=== PATIENT | female | born 1960 | race Caucasian/White ===

== ENCOUNTER 2024-07-03 08:41 | Outpatient (AMB) | payer MEDICAID, SELFPAY ==
--- NOTE | 2024-07-03 08:56 | ORTHONT_ITS ---
Vital signs 07/03/24 08:57 Height 1.73 m Height Method Stated Weight 68.152 kg Weight Measurement Method Standing Scale BMI 22.8 BP 122/89 H Blood Pressure Source Automatic Cuff Blood Pressure Location Right Upper Arm Position Sitting Respiration 17 Pulse 81 Pulse Source Monitor Temp 98.1 F Temp Source Temporal Artery Scan Pulse Oximetry (%) 99 Oxygen Delivery Method Room Air Med/Allergies Allergies & Medications Allergies Penicillins Allergy (Verified 07/03/24 08:58) Hives Medication Reconciliation ibandronate 150 mg tablet 150 mg PO QMONTH 07/03/24 [History Confirmed 07/03/24] meloxicam 7.5 mg tablet 7.5 mg PO QDAY #45 tabs 07/03/24 [Rx] Exam Exam Patient is in no acute distress and is cooperative with the examination today. Breathing is nonlabored. In no respiratory distress. Patient has no paraspinal tenderness. Spinal deformity cannot be appreciated. The gait of the patient is nonantalgic Bilateral extremities were evaluated and demonstrates sensation intact to light touch. Palpable pedal pulses are present. No significant edema is present. Bilateral knees were examined and the patient has full strength and range of motion.. The right hip was examined. Patient was able to flex to 90 degrees, adduct to 30 degrees, abduct to 40 degrees, internally rotate to 20 degrees, and externally rotate to 20 degrees. Patient has a negative logroll. Stinchfield is negative. The patient is nontender diffusely to touch. The left hip was examined. Patient was able to flex to 90 degrees, adduct to 30 degrees, abduct to 40 degrees, internally rotate to 10 degrees, and externally rotate to 20 degrees. PPatient has a positive logroll X-rays demonstrate significant Left hip arthritis with obliteration of superior joint space. There is a cam lesion as well. Assessment and Plan Problem List (1) Arthritis of left hip: Status: Acute Plan: Patient is a pleasant 64-year-old female with left hip pain and left hip arthritis of significant severity. We discussed different treatment options. She would like to continue anti-inflammatories for now as she has had good relief with meloxicam recently. She would like to try an injection if gets worse and she is not ready for total hip replacement at this time which is reasonable. We Will continue with conservative management for now Office Procedures GNS Level of Care Nursing/Assessment Patient Status: Initial/New Patient Nursing Assessment/Reassesment: Medication Reconciliation and Update PMH in EMR Coordination of Care: Complex Care and Chronic Disease 1-5, Consent,records obtained, informed consent, Education Simp Pt/Fam, Lab and Imaging orders and Results/Orders obtained New Patient Charge New Patient Point Assignment: [phone] New Patient Point Charge: [employer] Level 3 (7106-9705) MA Intake Visit Data Collection New Patient or Established: New Patient (never been to [facility]) Reason for Visit:: LEFT HIP PAIN Seen by Clinical Staff ONLY (RN/MA): No Senior Sales Operations Analyst Required: No PCP or OBGYN visit in last 3 months: Yes Hx Now: No Do You Feel Safe at Home: Yes Authorities Contacted: N/A Questionairres Past Medical History Past Medical History Have you ever been diagnosed with any of the following: Respiratory Problems Smoking: No Smoking Cessation Counseling: No Smoking Exposure: No Tobacco Use: No Subjective Visit Visit for: new patient and hip (LEFT HIP) Immunization / Flu Flu Vaccine in the Last 12 Months: Yes Flu Vaccine Exclusion Criteria: Already Received History of Present Illness Chief complaint: Left hip pain Gloria is a pleasant 64-year-old female with left greater than right hip pain. 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 She has had multiple family members with hips replaced recently. She reports significant left groin pain for the last 2 years. It has worsened recently Personal History Red flag PMH: none Pain Pain level (0-10): 2 Pain duration: 3 YEARS Pain location: groin Pain quality: sharp and dull Pain timing: night and increases with activity Associated signs & symptoms: none Ambulatory data Ambulatory device: none Walking distance (minutes): 5 Treatments Number of previous injections: 0 Number of Physical Therapy sessions: 20 Improvement with PT: No Improvement with NSAIDS: n/a Review of Systems Review of Systems: All systems negative unless otherwise noted in HPI.
[2024-07-03 08:57] VITALS: BP 122/89; PULSE 81; RESP 17; TEMP 36.7; O2SAT 99; BMI 22.8
== END 2024-07-03 09:15 | disposition home or self-care (01) ==
LOC: HODSRG 08:41
PROVIDERS: PCP Family Medicine; Referring Provider Family Medicine; Supervising Provider Orthopaedic Surgery Adult Reconstructive Orthopaedic Surgery; Visit Provider Orthopaedic Surgery Adult Reconstructive Orthopaedic Surgery
DX: M16.12 Unilateral primary osteoarthritis, left hip (principal); M25.552 Pain in left hip; M25.551 Pain in right hip
CPT/HCPCS: 99203; G0463

== ENCOUNTER 2024-08-07 14:06 | Outpatient (AMB) | payer MEDICAID, SELFPAY ==
[2024-08-07 14:27] VITALS: BP 126/86; PULSE 191; RESP 18; TEMP 36.8; O2SAT 97; BMI 22.8
--- NOTE | 2024-08-07 14:27 | PD.ORTHCLVIS ---
Vital signs 08/07/24 14:27 Height 1.73 m Height Method Stated Weight 68.266 kg Weight Measurement Method Standing Scale BMI 22.8 BP 126/86 H Blood Pressure Source Automatic Cuff Blood Pressure Location Left Upper Arm Position Sitting Respiration 18 Pulse 191 H Pulse Source Monitor Temp 98.3 F Temp Source Temporal Artery Scan Pulse Oximetry (%) 97 Oxygen Delivery Method Room Air Med/Allergies Allergies & Medications Allergies Penicillins Allergy (Verified 08/07/24 14:28) Hives Medication Reconciliation ibandronate 150 mg tablet 150 mg PO QMONTH 07/03/24 [History Confirmed 08/07/24] meloxicam 7.5 mg tablet 7.5 mg PO QDAY #45 tabs 07/03/24 [Rx Confirmed 08/07/24] Exam Exam Patient is in no acute distress and is cooperative with the examination today. Breathing is nonlabored. In no respiratory distress. Patient has no paraspinal tenderness. Spinal deformity cannot be appreciated. The gait of the patient is nonantalgic Bilateral extremities were evaluated and demonstrates sensation intact to light touch. Palpable pedal pulses are present. No significant edema is present. Bilateral knees were examined and the patient has full strength and range of motion.. The right hip was examined. Patient was able to flex to 90 degrees, adduct to 30 degrees, abduct to 40 degrees, internally rotate to 20 degrees, and externally rotate to 20 degrees. Patient has a negative logroll. Stinchfield is negative. The patient is nontender diffusely to touch. The left hip was examined. Patient was able to flex to 90 degrees, adduct to 30 degrees, abduct to 40 degrees, internally rotate to 10 degrees, and externally rotate to 20 degrees. PPatient has a positive logroll X-rays demonstrate significant Left hip arthritis with obliteration of superior joint space. There is a cam lesion as well. Assessment and Plan Problem List (1) Arthritis of left hip: Status: Acute Plan: Patient is a pleasant 64-year-old female with left hip pain and left hip arthritis of significant severity. We discussed different treatment options. The pain has affected her quality of life and happiness. We will do this through an anterior approach. The nature and purpose of the total hip replacement, alternative method(s) of treatment, the material risks involved, and the possibility of complications were fully explained to the patient. The patient does NOT have any of the following contraindications to SHAN: - Active infection of the hip joint, OR - Active systemic bacteremia, OR - Active skin infection or open wound at surgical site, OR - Neuropathic arthritis, OR - Severe, rapidly progressive neurological disease, OR - Severe medical condition that makes risks of the surgery outweigh the potential benefit The patient was told the most common risks and complications associated with a total hip replacement include, but are not limited to: blood clots in the leg, fatal pulmonary embolism, dislocation of the prosthesis, intraoperative and postoperative fractures of the femur or acetabulum, infection, failure of the prosthesis or grafting materials, complications from anesthesia, reactions to blood transfusions, postoperative leg length inequality, instability of the hip replacement, nerve damage or injury, vascular injury, delayed wound healing, infection, other injury or even . In addition, there are risks associated with anesthesia given during this operation. Also, the patient was told that after undergoing a total hip replacement there may still be persistent pain or disability. The patient was informed that the success of this operation in part depends upon the mechanical devices which are going to be implanted and that these devices can fail or malfunction, and may need to be repaired or replaced and there are no guarantees as to the longevity of this device or its parts and that it or its parts could fail prematurely. The patient was also notified that during the course of surgery, there may be a need to use bone graft from donors, and that any bone graft used will be carefully screened for communicable diseases, including AIDS, hepatitis, Ted-Creutzfeldt, or other diseases, but despite the screening procedures, there is a small chance that they could contract one of these diseases. Finally, the patient was asked to follow completely and fully with all advice and recommended treatments, and that recovery and ultimate outcome are affected by their compliance with recommended treatment. We discussed the risks, benefits and treatment alternatives, and the patient is interested in proceeding with surgery. We will try to set this up as expeditiously as possible. Office Procedures GNS Level of Care Nursing/Assessment Patient Status: Established Patient Nursing Assessment/Reassesment: Medication Reconciliation, Update PMH in EMR and Vital Signs Coordination of Care: Complex Care and Chronic Disease 1-5, Education Complex Pt/Fam, Consent,records obtained, informed consent, Results/Orders obtained and Staff clarify orders Established Patient Charge Established Patient Point Assignment: 95 Established Patient Point Charge: Level 3 (80-115) MA Intake Visit Data Collection New Patient or Established: Established Patient (seen at [facility] within 3 years) Reason for Visit:: BILATERAL HIP PAIN Seen by Clinical Staff ONLY (RN/MA): No PCP or OBGYN visit in last 3 months: Yes Hx Now: No Do You Feel Safe at Home: Yes Authorities Contacted: N/A Questionairres Past Medical History Past Medical History Have you ever been diagnosed with any of the following: Respiratory Problems Smoking: No Smoking Cessation Counseling: No Smoking Exposure: No Tobacco Use: No Subjective Visit Visit for: follow up visit and hip Immunization / Flu Flu Vaccine in the Last 12 Months: No Flu Vaccine Exclusion Criteria: No Exclusion Criteria History of Present Illness Chief complaint: Left hip pain Gloria is a pleasant 64-year-old female with left greater than right hip pain. 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 She has had multiple family members with hips replaced recently. She reports significant left groin pain for the last 2 years. It has worsened recently. We have tried NSAIDs as well as formal physical therapy for several months each. The pain is now affecting his quality of life and happiness Personal History Red flag PMH: none Pain Pain level (0-10): 10 Pain duration: ALL DAY Pain location: groin, outside (lateral) and anterior Pain quality: dull and aching Pain timing: increases with activity Associated signs & symptoms: none Ambulatory data Ambulatory device: none Walking distance (minutes): 5 Treatments Number of previous injections: 0 Improvement with previous injections: No Number of Physical Therapy sessions: 20 Improvement with PT: No Improvement with NSAIDS: no Review of Systems Review of Systems: All systems negative unless otherwise noted in HPI.
--- NOTE | 2024-08-07 14:37 | XR_ITS ---
Examination: Bilateral hips, AP pelvis, 5 views Technique: AP, lateral views both hips, AP pelvis, 5 views Exam date and time: August 07, 2024 at 1448 hours INDICATIONS: Bilateral hip pain 2 months. FINDINGS: Moderate right hip osteoarthritis. Advanced left hip osteoarthritis with severe narrowing of the left hip joint and subarticular sclerosis No hip or pelvic fracture IMPRESSION: Moderate right hip osteoarthritis Severe left hip osteoarthritis
== END 2024-08-07 14:50 | disposition home or self-care (01) ==
LOC: HODSRG 14:06
PROVIDERS: PCP Family Medicine; Referring Provider Family Medicine; Supervising Provider Orthopaedic Surgery Adult Reconstructive Orthopaedic Surgery; Visit Provider Orthopaedic Surgery Adult Reconstructive Orthopaedic Surgery
DX: M16.12 Unilateral primary osteoarthritis, left hip (principal); M25.552 Pain in left hip
CPT/HCPCS: 73522; 99213; G0463

== ENCOUNTER 2024-08-26 09:24 | Outpatient (AMB) | payer MEDICAID, SELFPAY ==
--- NOTE | 2024-08-26 09:39 | PD.ORTHCLVIS ---
Vital signs 08/26/24 09:49 Height 1.73 m Height Method Stated Weight 67.387 kg Weight Measurement Method Standing Scale BMI 22.5 BP 149/78 H Blood Pressure Source Automatic Cuff Blood Pressure Location Right Upper Arm Position Standing Respiration 18 Pulse 82 Pulse Source Monitor Temp 97.4 F Temp Source Temporal Artery Scan Pulse Oximetry (%) 98 Oxygen Delivery Method Room Air Med/Allergies Allergies & Medications Allergies Penicillins Allergy (Verified 08/26/24 09:50) Hives Medication Reconciliation ibandronate 150 mg tablet 150 mg PO QMONTH 07/03/24 [History Confirmed 08/26/24] meloxicam 7.5 mg tablet 7.5 mg PO QDAY #45 tabs 08/12/24 [Rx Confirmed 08/26/24] Exam Exam Patient is in no acute distress and is cooperative with the examination today. Breathing is nonlabored. In no respiratory distress. Patient has no paraspinal tenderness. Spinal deformity cannot be appreciated. The gait of the patient is nonantalgic Bilateral extremities were evaluated and demonstrates sensation intact to light touch. Palpable pedal pulses are present. No significant edema is present. Bilateral knees were examined and the patient has full strength and range of motion.. The right hip was examined. Patient was able to flex to 90 degrees, adduct to 30 degrees, abduct to 40 degrees, internally rotate to 20 degrees, and externally rotate to 20 degrees. Patient has a negative logroll. Stinchfield is negative. The patient is nontender diffusely to touch. The left hip was examined. Patient was able to flex to 90 degrees, adduct to 30 degrees, abduct to 40 degrees, internally rotate to 10 degrees, and externally rotate to 20 degrees. PPatient has a positive logroll X-rays demonstrate significant Left hip arthritis with obliteration of superior joint space. There is a cam lesion as well. Assessment and Plan Problem List (1) Arthritis of left hip: Status: Acute Plan: Patient is a pleasant 64-year-old female with left hip pain and left hip arthritis of significant severity. We discussed different treatment options. The pain has affected her quality of life and happiness. We will do this through an anterior approach. The nature and purpose of the total hip replacement, alternative method(s) of treatment, the material risks involved, and the possibility of complications were fully explained to the patient. The patient does NOT have any of the following contraindications to SHAN: - Active infection of the hip joint, OR - Active systemic bacteremia, OR - Active skin infection or open wound at surgical site, OR - Neuropathic arthritis, OR - Severe, rapidly progressive neurological disease, OR - Severe medical condition that makes risks of the surgery outweigh the potential benefit The patient was told the most common risks and complications associated with a total hip replacement include, but are not limited to: blood clots in the leg, fatal pulmonary embolism, dislocation of the prosthesis, intraoperative and postoperative fractures of the femur or acetabulum, infection, failure of the prosthesis or grafting materials, complications from anesthesia, reactions to blood transfusions, postoperative leg length inequality, instability of the hip replacement, nerve damage or injury, vascular injury, delayed wound healing, infection, other injury or even . In addition, there are risks associated with anesthesia given during this operation. Also, the patient was told that after undergoing a total hip replacement there may still be persistent pain or disability. The patient was informed that the success of this operation in part depends upon the mechanical devices which are going to be implanted and that these devices can fail or malfunction, and may need to be repaired or replaced and there are no guarantees as to the longevity of this device or its parts and that it or its parts could fail prematurely. The patient was also notified that during the course of surgery, there may be a need to use bone graft from donors, and that any bone graft used will be carefully screened for communicable diseases, including AIDS, hepatitis, Ted-Creutzfeldt, or other diseases, but despite the screening procedures, there is a small chance that they could contract one of these diseases. Finally, the patient was asked to follow completely and fully with all advice and recommended treatments, and that recovery and ultimate outcome are affected by their compliance with recommended treatment. We discussed the risks, benefits and treatment alternatives, and the patient is interested in proceeding with surgery. We will try to set this up as expeditiously as possible. Office Procedures GNS Level of Care Nursing/Assessment Patient Status: Established Patient Nursing Assessment/Reassesment: Medication Reconciliation, Update PMH in EMR and Vital Signs Coordination of Care: Complex Care/Chronic Disease 5 or more, Education Complex Pt/Fam, Consent,records obtained, informed consent, Results/Orders obtained and Staff clarify orders Established Patient Charge Established Patient Point Assignment: 105 Established Patient Point Charge: Level 3 (80-115) SABRA Intake Visit Data Collection New Patient or Established: Established Patient (seen at [facility] within 3 years) Reason for Visit:: PRE- OP LEFT SHAN Seen by Clinical Staff ONLY (RN/SABRA): No Verbal consent obtained for Telemed visit?: No Mobile Application Tester Required: No PCP or OBGYN visit in last 3 months: Yes Hx Now: No Do You Feel Safe at Home: Yes Authorities Contacted: N/A Questionairres Past Medical History Past Medical History Have you ever been diagnosed with any of the following: Respiratory Problems Smoking: No Smoking Cessation Counseling: No Smoking Exposure: No Tobacco Use: No Subjective Visit Visit for: follow up visit, post op #1 and hip Immunization / Flu Flu Vaccine in the Last 12 Months: No Flu Vaccine Exclusion Criteria: Already Received History of Present Illness Chief complaint: PRE-OP LEFT SHAN Gloria is a pleasant 64-year-old female with left greater than right hip pain. 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 She has had multiple family members with hips replaced recently. She reports significant left groin pain for the last 2 years. It has worsened recently. We have tried NSAIDs as well as formal physical therapy for several months each. The pain is now affecting his quality of life and happiness Personal History Occupation: RETIRED Red flag PMH: none Pain Pain level (0-10): 6 Pain duration: COMES AND GOES Pain location: groin, outside (lateral) and anterior Pain quality: sharp and dull Pain timing: increases with activity Associated signs & symptoms: none Ambulatory data Ambulatory device: none Walking distance (minutes): 5 Treatments Number of previous injections: 0 Improvement with previous injections: No Number of Physical Therapy sessions: 20 Improvement with PT: No Improvement with NSAIDS: no Review of Systems Review of Systems: All systems negative unless otherwise noted in HPI.
[2024-08-26 09:49] VITALS: BP 149/78; PULSE 82; RESP 18; TEMP 36.3; O2SAT 98; BMI 22.5
== END 2024-08-26 10:14 | disposition home or self-care (01) ==
LOC: HODSRG 09:24
PROVIDERS: PCP Family Medicine; Referring Provider Family Medicine; Supervising Provider Orthopaedic Surgery Adult Reconstructive Orthopaedic Surgery; Visit Provider Orthopaedic Surgery Adult Reconstructive Orthopaedic Surgery
DX: M16.12 Unilateral primary osteoarthritis, left hip (principal); M25.552 Pain in left hip; R10.30 Lower abdominal pain, unspecified
CPT/HCPCS: 99213; G0463

== ENCOUNTER → 2024-09-01 | Outpatient (CLI) | payer MEDICAID, SELFPAY ==
--- NOTE | 2024-09-01 12:30 | XR_ITS ---
Examination: CT bilateral lower extremities, without contrast. 2-D sagittal reconstructions. 2-D coronal reconstructions. 3-D reconstructions. Date and time of exam:September 01, 2024 1234 hours INDICATIONS: Diagnosis unilateral left hip osteoarthritis left hip pain for years CTDI: vol (mGy):12.5 DLP: (mGycm):707 Technique: Multiple 1.25 mm axial sections of the bilateral lower extremities without intravenous contrast have been obtained. 2-D sagittal and coronal reconstructions have been obtained. 3-D reconstructions have been obtained. Low dose protocols were performed. One or more of the following dose reduction techniques were used; automated exposure control, adjustment of the mA and/or KV according to patient size, use of iterative reconstruction technique. Findings: Moderate osteopenia Advanced left hip osteoarthritis, severe joint space narrowing Moderate right hip joint space narrowing Bilateral mild to moderate narrowing medial patellofemoral joints No new fractures No patellar dislocation IMPRESSION: Severe left hip osteoarthritis
== END | disposition home or self-care (01) ==
PROVIDERS: PCP Student in an Organized Health Care Education/Training Program; Referring Provider Orthopaedic Surgery Adult Reconstructive Orthopaedic Surgery; Visit Provider Orthopaedic Surgery Adult Reconstructive Orthopaedic Surgery
DX: M16.12 Unilateral primary osteoarthritis, left hip (principal)
CPT/HCPCS: 72192; 73700

== ENCOUNTER 2024-09-10 05:40 | Day surgery (SDC) | payer MEDICAID, SELFPAY ==
--- NOTE | 2024-09-08 07:00 | EKG_ITS ---
[facility] Test Date: 2024-09-08 Pat Name: MASON CRISTINA Department: Room: - Gender: Female Housekeeper Cleaning Cooking: MAX : 1960 Requested By: Arturo Edgar Order Number: [id number] Reading MD: Arturo Edgar Measurements Intervals [place] Rate: 71 P: 78 IN: 192 QRS: -72 QRSD: 73 T: 70 QT: 338 QTc: 369 Interpretive Statements SINUS RHYTHM POSSIBLE LEFT ATRIAL ENLARGEMENT [-0.1mV P WAVE IN V1/V2] MARKED LEFT AXIS DEVIATION [QRS AXIS < -30] POSSIBLE RIGHT VENTRICULAR CONDUCTION DELAY [RSR (QR) IN V1/V2] ANTEROSEPTAL MYOCARDIAL INFARCTION , OF INDETERMINATE AGE [40+ ms Q WAVE IN V1-V4] No previous ECG available for comparison /[id number]/S0/[id number].pdf
[2024-09-08 09:19] VITALS: BMI 22.9
[2024-09-08 10:35] LABS: Basophils # (Auto) 0.1 Thou/mm3 (0.0-0.2); Basophils % (Auto) 1 % (0-2.5); Eosinophils # (Auto) 0.0 Thou/mm3 (0.0-0.5); Eosinophils % (Auto) 0 % (0-10); Hematocrit 44.3 % (36.0-46.0); Hemoglobin 15.1 g/dL (12.0-16.0); Immature Granulocytes Auto 0.04 Thou/mm3 (0.00-0.00); Lymphocytes # (Auto) 1.1 Thou/mm3 (1.0-4.8); Lymphocytes % (Auto) 13 % (10-50); Mean Corpuscular HGB Conc 34.1 g/dl (31.0-37.0); Mean Corpuscular Hemoglobin 32.4 pg (25.0-35.0); Mean Corpuscular Volume 95 fL (80-100); Monocytes # (Auto) 0.6 Thou/mm3 (0.0-0.8); Monocytes % (Auto) 8 % (0-12); Neutrophils # (Auto) 6.3 Thou/mm3 (1.8-7.7); Neutrophils % (Auto) 78 % (37-80); Nucleated Red Blood Cell # 0.00 Thou/mm3 (0.00-0.00); Nucleated Red Blood Cell % 0 /100 WBC (0); Platelet Count 242 Thou/mm3 (140-440); RDW Standard Deviation 44.5 fL (36.4-46.3); Red Blood Count 4.66 Miln/mm3 (4.00-5.20); White Blood Count 8.1 Thou/mm3 (3.6-11.0)
[2024-09-08 10:44] LABS: Alanine Aminotransferase 51 U/L (10-49); Albumin, Serum 4.9 gm/dL (3.4-4.8); Albumin/Globulin Ratio 1.8 (1.2-2.2); Alkaline Phosphatase 63 U/L (46-116); Anion Gap 9 (7-16); Aspartate Amino Transferase 45 U/L (0-34); BUN/Creatinine Ratio 13 Ratio (12-20); Bilirubin,Total 0.9 mg/dL (0.3-1.2); Blood Urea Nitrogen 10 mg/dL (9-23); Calcium 10.0 mg/dL (8.3-10.6); Calcium (Corrected) 10.0 mg/dL (8.5-10.1); Carbon Dioxide 28.0 mMol/L (20.0-31.0); Chloride 100 mMol/L (98-107); Creatinine (Component) 0.8 mg/dL (0.6-1.3); Estimated Creatinine Clearance 70.0 mL/min (>60); Globulin 2.8 gm/dL (2.3-3.5); Glucose 126 mg/dL (74-106); Osmolality,Calculated 274 (275-295); Potassium 5.0 mMol/L (3.4-5.1); Sodium 137 mMol/L (136-145); Total Protein 7.7 gm/dL (5.7-8.2); eGFR > 60 See Note
[2024-09-08 10:45] LABS: INR 0.9 (0.9-1.3); Partial Thromboplastin Time 28.2 Seconds (22.0-36.0); Prothrombin Time 10.3 Seconds (9.0-12.2)
[2024-09-10] VITALS (12 sets, daily range): BP systolic 90–135; BP diastolic 65–84; PULSE 70–86; RESP 14–20; TEMP 36.2–36.6; O2SAT 94–100; BMI 23.0; BMI 13.0
[2024-09-10] MEDS: ACETAMINOPHEN 325 MG TABLET 650 MG PO (06:36)
[2024-09-10] MEDS: RINGERS LACTATED 1000 ML 1,000 ML 20 ML IV (06:37)
[2024-09-10] MEDS: MELOXICAM 7.5 MG TABLET PO (06:37)
[2024-09-10] MEDS: PREGABALIN 75 MG CAPSULE PO (06:37)
--- NOTE | 2024-09-10 07:49 | XR_ITS ---
Examination: Left hip 3 views Fluoroscopy Date and time: September 10, 2024 0918 hours INDICATIONS: Total left hip arthroplasty today. FINDINGS: Total left hip arthroplasty. Satisfactory alignment Fluoroscopy 12.3 seconds radiation dose 0.954 milligray IMPRESSION: Total left hip arthroplasty with satisfactory alignment
--- NOTE | 2024-09-10 10:14 | SUR.PHASEI ---
pt received from OR in recovery bay 1. pt asleep but responds to voice, breathing unlabored on oxymask 5l. v/s stable. pt dressing to bilateral hips cdi. report received from Fabio VILLANUEVA and Rd SERNA.
--- NOTE | 2024-09-10 10:16 | ESOP_ITS ---
Date of Procedure 09/10/24 Pre Op Diagnosis left hip osteoarthritis Post Op Diagnosis left hip osteoarthritis Procedure left total hip replacement john Findings full thickness cartilage loss and osteophytes Procedure Description Indications: The patient is a 64 y.o. year-old male with a long standing history of left hip pain. After considering the patient's condition and the impact of their hip on the patient's quality of life and activities of daily living, total hip replacement was offered as a reasonable option. Prior to the surgery I discussed the nature of the total hip replacement surgery including alternatives to surgery and the purpose of, and indications for proceeding with surgery. I discussed that this is an elective operation and that the patient should carefully weigh their options before proceeding with surgery. I discussed that this surgery is a shared decision between the patient and the surgeon. Risks and benefits and alternatives of the procedure have been explained to the patient and their family. Anesthesia complications and risks include but are not limited to stroke, heart attack, and . The surgical risks include but are not limited to infection, instability/dislocation, bleeding, nerve and blood vessel injury, deep vein thrombosis, pulmonary embolus, stiffness, pain, scar, need for reoperation, leg length discrepancy, thigh numbness, weakness, and mechanical failure of the implant including loosening, metal complications, metal allergy, wear or breakage. I discussed the expected recovery from surgery and the importance of compliance with all our pre and post-operative recommendations in order to maximize the recovery. The patient understands the risks of loss of life, loss of limb and, loss of function and wishes to proceed. A signed and witnessed consent was obtained and placed in the chart. Procedure in Detail: The patient was identified in the preoperative area. A signed and witness consent was confirmed in the chart. The surgery team confirmed with the patient the operative plan and surgical site. The surgical site was confirmed by the patient and marked by the surgical team. The patient was given the opportunity to ask any further questions and all questions were answered. The patient was brought to the operating room where anesthesia was induced by the anesthesia team without incident. The patient was placed in the supine position on a HANA table with the feet well padded in the boots. All extremities were padded to ensure adequate protection. A timeout was performed prior to the procedure which verified the correct patient, positioning, operation to be performed, operative site, antibiotics, allergies, imaging, and any other concerns. All parties were in agreement. The operative site was cleaned and draped in the usual sterile fashion. A final timeout was performed with all parties in agreement. We first started by making a small incision superior to the ASIS ensuring to be on the table of the pelvis. We ensured that we were 2 fingerbreadths above the ASIS and hip. We placed 3 pins through a small incision and ensured that we w ere in the table. The pins were driven approximately 3 to 4 cm. The arrays were then placed on the contralateral side to face the camera. A anterior approach to the hip was utilized for the operative side. A 11cm skin incision was made just distal and lateral to the ASIS. This was taken down through skin and subcutaneous tissue using a 10 blade. Bleeding was controlled using electrocautery. The fascia was identified and split in line with the its fibers. The plane medial to the TFL was developed. Next the lateral femoral circumflex vessel was cauterized. The capsule over the femoral neck was exposed and a T shaped capsulotomy performed. The two leaflets were tagged. A femoral neck osteotomy was then performed and the head removed using the marker tool to aid in determining the appropriate neck length. The acetabular bone was then mapped.Acetabular retractors were placed and the cupped was reamed using the robot for alignment. We reamed line to line and good bleeding bone was obtained. We then placed a press fit triathlon cup getting proper version and inclination off of c-arm imaging. There was good press fit. The anterior rim of the cup well covered. One placed and confirmed below the rim of the inner cup followed by the liner which was confirmed fully seated circumferentially. Half of the joint injection was placed inferior and anterior to the acetabulum. Peripheral osteophytes were removed. Next the femur was exposed using the table and femoral elevator for assistance. For this case a capsular release was performed leaving the piriformis and rest of short external rotators intact. The canal was broached up until we obtained excellent axial and rotational stability and the hip was reduced. Fluoro was used to apprentice painter brush limb length, offset, and stem size as well as the calibrations from the robot. Stability was assessed by externally rotating the foot to 90 deg and then extending the hip 30 degrees. There was no subluxation of the femoral head in that position. The hip was dislocated. The stem position and depth was adjusted as needed per the fluoro shot. The neck was planed to the level of the broach using the calcar planar and then the stem removed. The canal was irrigated and the calcar inspected. There was no evidence of fracture and the bone bed was in good condition. The real stem was inserted and then impacted to the prior level of the broach with good solid fit. The calcar was again inspected and in good condition. The real head was impacted onto a clean taper and the hip reduced again. C-arm confirmed reduction and no evidence of complication. The wound was irrigated with dilute betadine followed by saline lavage. Hemostasis was obtained and noted through all layers. The remained of the joint cocktail was injected avoiding posterior by the nerve. We ensured that all the pins were removed from the pelvis including any checkpoints. The capsule was repaired with 0-vlock. The fascia closed with #2 Quill. The s ubcutaneous tissues closed with 2-0 vlock followed by 3-0 monocryl, dermabond, and prineo The drapes were then taken down and the patient moved to the [facility]. Leg lengths were confirmed to be appropriate and the patient's lower extremities were warm and well perfused with brisk capillary refill and palpable pulses. The patient was then awoken, transferred to the [facility] and taken to the PACU in stable condition. They tolerated the procedure well. The patient's family/caregiviers were made aware of their condition. Final sponge and needle counts were correct x2. Implants: Tolu cup size 54, 1 screws 40-2.5 ceramic head, insignia size 6 high offset Anesthesia spinal Implants tolu Pathology / specimen None Pathology comment: none Estimated Blood Loss 150 Condition Stable Disposition same day Surgeon Jimbo Maynard MD Surgical Staff Operation Date: 09/10/24 07:30 Case Staff APPLICATION OPERATIONS ENGINEER: Fabio Cartwright RNfolder tier: Luanne Stewart
--- NOTE | 2024-09-10 10:21 | XR_ITS ---
Examination:Left hip AP, lateral, AP pelvis 3 views Technique: Hip AP lateral, AP pelvis, 3 views Exam date and time:September 10, 2024 1024 hours INDICATIONS: Postop hip replacement FINDINGS: Total left hip arthroplasty. Satisfactory alignment. Moderate to advanced right hip osteoarthritis IMPRESSION: Total left hip arthroplasty with satisfactory alignment.
--- NOTE | 2024-09-10 10:55 | SUR.PHASEII ---
pt able to tolerate oral fluids without difficulty swallowing or nausea/vomiting.
--- NOTE | 2024-09-10 11:20 | SUR.PHASEII ---
Received report on pt. s/p surgery from George SERNA. Pt. is resting with eyes closed, responds to verbal commands, VSS, dressing to left hip CDI.
--- NOTE | 2024-09-10 12:46 | SUR.PHASEII ---
pt awake and alert, breathing unlabored on room air. v/s stable. pt dressing to bilateral hips cdi. pt cleared by physical therapist Ambar. pt able to ambulate to bathroom using walker. d/c instructions given with Moshe in room, all questions answered. pt d/c via wheelchair with all belongings.
== END 2024-09-10 12:46 | disposition home or self-care (01) ==
PROVIDERS: Anesthesiology; PCP Family Medicine; Referring Provider Orthopaedic Surgery Adult Reconstructive Orthopaedic Surgery; Visit Provider Orthopaedic Surgery Adult Reconstructive Orthopaedic Surgery
PROC: (CPT 27130; principal; 2024-09-10 07:30)
DX: M16.12 Unilateral primary osteoarthritis, left hip (principal)
CPT/HCPCS: 27130; 20985; 36415; 73502; 76000; 80053; 85025; 85610; 85730; 93005; 97162; A4217; A4649; C1713; C1776; J0690; J1100; J1171; J2250; J2405; J2704; J3010; J3490; J7120; J7999; A4648; A9270; J1920

== ENCOUNTER 2024-09-25 10:57 | Outpatient (AMB) | payer MEDICAID, SELFPAY ==
--- NOTE | 2024-09-25 11:11 | ORTHONT_ITS ---
Vital signs 09/25/24 11:17 Height 1.7 m Height Method Stated Weight 68.152 kg Weight Measurement Method Standing Scale BMI 23.6 BP 130/78 Blood Pressure Source Automatic Cuff Blood Pressure Location Left Upper Arm Position Sitting Respiration 18 Pulse 76 Pulse Source Monitor Temp 97.1 F Temp Source Temporal Artery Scan Pulse Oximetry (%) 97 Oxygen Delivery Method Room Air Med/Allergies Allergies & Medications Allergies Penicillins Allergy (Verified 09/25/24 11:17) Hives Medication Reconciliation ibandronate 150 mg tablet 150 mg PO QMONTH 07/03/24 [History Confirmed 09/25/24] meloxicam 7.5 mg tablet 7.5 mg PO QDAY #45 tabs 08/12/24 [Rx Confirmed 09/25/24] acetaminophen 500 mg tablet (Acetaminophen Extra Strength) 1,000 mg (2 x 500 mg) PO Q6H PRN pain #90 tabs 09/10/24 [Rx Confirmed 09/25/24] aspirin 81 mg tablet,delayed release 81 mg PO BID #60 tabs 09/10/24 [Rx Confirmed 09/25/24] doxycycline hyclate 100 mg tablet 100 mg PO BID #14 tabs 09/10/24 [Rx Confirmed 09/25/24] gabapentin 300 mg capsule 300 mg PO .qhs #30 caps 09/10/24 [Rx Confirmed 09/25/24] oxycodone 5 mg tablet 5 mg PO Q6H PRN pain #28 tabs 09/10/24 [Rx Confirmed 09/25/24] sennosides 8.6 mg-docusate sodium 50 mg tablet (Senna-S) 1 tab-cap PO QDAY #30 tabs 09/10/24 [Rx Confirmed 09/25/24] Exam Exam Patient is in no acute distress and is cooperative with the examination today. Breathing is nonlabored. In no respiratory distress. Patient has no paraspinal tenderness. Spinal deformity cannot be appreciated. The gait of the patient is nonantalgic Bilateral extremities were evaluated and demonstrates sensation intact to light touch. Palpable pedal pulses are present. No significant edema is present. Bilateral knees were examined and the patient has full strength and range of motion.. The right hip was examined. Patient was able to flex to 90 degrees, adduct to 30 degrees, abduct to 40 degrees, internally rotate to 20 degrees, and externally rotate to 20 degrees. Patient has a negative logroll. [place] is negative. The patient is nontender diffusely to touch. Left hip incision is clean dry and intact Assessment and Plan Problem List (1) Arthritis of left hip: Status: Acute Plan: Patient is a pleasant 64-year-old female with left hip pain and left hip arthritis of significant severity. She is status post left total hip replacement and is doing well. Will see the patient back in approximately 4 weeks for routine evaluation. She will start physical therapy Office Procedures GNS Level of Care Nursing/Assessment Patient Status: Established Patient Nursing Assessment/Reassesment: Medication Reconciliation, Update PMH in EMR and Vital Signs Coordination of Care: Complex Care and Chronic Disease 1-5, Education Complex Pt/Fam, Consent,records obtained, informed consent, Results/Orders obtained and Staff clarify orders Established Patient Charge Established Patient Point Assignment: 95 Established Patient Point Charge: Level 3 (80-115) MA Intake Visit Data Collection New Patient or Established: Established Patient (seen at [facility] within 3 years) Reason for Visit:: 2 WEEK POST OP L SHAN Seen by Clinical Staff ONLY (RN/MA): No Verbal consent obtained for Telemed visit?: No Schedule Announcer Required: No PCP or OBGYN visit in last 3 months: Yes Hx Now: No Do You Feel Safe at Home: Yes Authorities Contacted: N/A Questionairres Past Medical History Past Medical History Have you ever been diagnosed with any of the following: Neurological Problems Seizures: No Cardiology Problems Congestive Heart Failure: No Respiratory Problems Chronic Obstructive Pulmonary Disease (COPD): No Smoking: No Smoking Cessation Counseling: No Smoking Exposure: No Tobacco Use: No Genital/Urinary Problems Renal Disease: No Reproductive Problems Previous Pregnancies: No Musculoskeletal Problems Osteoporosis: Yes (Ostopenia) Fractures: Yes (Left wrist) Endocrine Problems Diabetes Mellitus Type 1: No Diabetes Mellitus Type 2: No Other Problems Hospitalization: Yes ([facility]) Shingles: Yes Blood Transfusions: No Blood Transfusion Reaction: No Anesthesia Reactions: No Chicken Pox: Yes Cancer: No Surgical History Total Hip Replacement: Yes (LEFT 08/2024) Subjective Visit Visit for: follow up visit, post op #1 and hip Immunization / Flu Flu Vaccine in the Last 12 Months: No Flu Vaccine Exclusion Criteria: Already Received History of Present Illness Chief complaint: PRE-OP LEFT SHAN Gloria is a pleasant 64-year-old female with left greater than right hip pain. She is doing well status post total hip replacement which was done 2 weeks ago. She is very happy Personal History Occupation: RETIRED Red flag PMH: none Pain Pain level (0-10): 3 Pain duration: ON AND OFF Pain location: outside (lateral) Pain quality: dull Pain timing: increases with activity Associated signs & symptoms: none Ambulatory data Ambulatory device: none Walking distance (minutes): 5 Treatments Number of previous injections: 0 Improvement with previous injections: No Number of Physical Therapy sessions: 20 Improvement with PT: No Improvement with NSAIDS: no Review of Systems Review of Systems: All systems negative unless otherwise noted in HPI.
[2024-09-25 11:17] VITALS: BP 130/78; PULSE 76; RESP 18; TEMP 36.2; O2SAT 97; BMI 23.6
== END 2024-09-25 11:27 | disposition home or self-care (01) ==
LOC: HODSRG 10:57
PROVIDERS: PCP Family Medicine; Referring Provider Family Medicine; Supervising Provider Orthopaedic Surgery Adult Reconstructive Orthopaedic Surgery; Visit Provider Orthopaedic Surgery Adult Reconstructive Orthopaedic Surgery
DX: M16.12 Unilateral primary osteoarthritis, left hip (principal); M25.552 Pain in left hip; Z96.642 Presence of left artificial hip joint
CPT/HCPCS: 99213; G0463

== ENCOUNTER 2024-10-23 11:03 | Outpatient (AMB) | payer MEDICAID, SELFPAY ==
[2024-10-23 11:11] VITALS: BP 116/78; PULSE 78; RESP 18; TEMP 36.2; O2SAT 98; BMI 23.6
--- NOTE | 2024-10-23 11:11 | ORTHONT_ITS ---
Vital signs 10/23/24 11:11 Height 1.7 m Height Method Stated Weight 68.152 kg Weight Measurement Method Standing Scale BMI 23.6 BP 116/78 Blood Pressure Source Automatic Cuff Blood Pressure Location Left Upper Arm Position Sitting Respiration 18 Pulse 78 Pulse Source Monitor Temp 97.2 F Temp Source Temporal Artery Scan Pulse Oximetry (%) 98 Oxygen Delivery Method Room Air Med/Allergies Allergies & Medications Allergies Penicillins Allergy (Verified 10/23/24 11:12) Hives Medication Reconciliation ibandronate 150 mg tablet 150 mg PO QMONTH 07/03/24 [History Confirmed 10/23/24] meloxicam 7.5 mg tablet 7.5 mg PO QDAY #45 tabs 08/12/24 [Rx Confirmed 10/23/24] acetaminophen 500 mg tablet (Acetaminophen Extra Strength) 1,000 mg (2 x 500 mg) PO Q6H PRN pain #90 tabs 09/10/24 [Rx Confirmed 10/23/24] aspirin 81 mg tablet,delayed release 81 mg PO BID #60 tabs 09/10/24 [Rx Confirmed 10/23/24] doxycycline hyclate 100 mg tablet 100 mg PO BID #14 tabs 09/10/24 [Rx Confirmed 10/23/24] gabapentin 300 mg capsule 300 mg PO .qhs #30 caps 09/10/24 [Rx Confirmed 10/23/24] oxycodone 5 mg tablet 5 mg PO Q6H PRN pain #28 tabs 09/10/24 [Rx Confirmed 10/23/24] sennosides 8.6 mg-docusate sodium 50 mg tablet (Senna-S) 1 tab-cap PO QDAY #30 tabs 09/10/24 [Rx Confirmed 10/23/24] Exam Exam Patient is in no acute distress and is cooperative with the examination today. Breathing is nonlabored. In no respiratory distress. Patient has no paraspinal tenderness. Spinal deformity cannot be appreciated. The gait of the patient is nonantalgic Bilateral extremities were evaluated and demonstrates sensation intact to light touch. Palpable pedal pulses are present. No significant edema is present. Bilateral knees were examined and the patient has full strength and range of motion.. The right hip was examined. Patient was able to flex to 90 degrees, adduct to 30 degrees, abduct to 40 degrees, internally rotate to 10 degrees, and externally rotate to 20 degrees. Patient has a positive logroll. [place] is positiive. Left hip incision is clean dry and intact Assessment and Plan Problem List (1) Arthritis of left hip: Status: Acute Plan: Patient is a pleasant 64-year-old female with left hip pain and left hip arthritis of significant severity. She is status post left total hip replacement and is doing well. The right hip pain is affecting her quality life and happiness. We will plan to do this through an anterior approach The nature and purpose of the total hip replacement, alternative method(s) of treatment, the material risks involved, and the possibility of complications were fully explained to the patient. The patient does NOT have any of the following contraindications to SHAN: - Active infection of the hip joint, OR - Active systemic bacteremia, OR - Active skin infection or open wound at surgical site, OR - Neuropathic arthritis, OR - Severe, rapidly progressive neurological disease, OR - Severe medical condition that makes risks of the surgery outweigh the potential benefit The patient was told the most common risks and complications associated with a total hip replacement include, but are not limited to: blood clots in the leg, fatal pulmonary embolism, dislocation of the prosthesis, intraoperative and postoperative fractures of the femur or acetabulum, infection, failure of the prosthesis or grafting materials, complications from anesthesia, reactions to blood transfusions, postoperative leg length inequality, instability of the hip replacement, nerve damage or injury, vascular injury, delayed wound healing, infection, other injury or even . In addition, there are risks associated with anesthesia given during this operation. Also, the patient was told that after undergoing a total hip replacement there may still be persistent pain or disability. The patient was informed that the success of this operation in part depends upon the mechanical devices which are going to be implanted and that these devices can fail or malfunction, and may need to be repaired or replaced and there are no guarantees as to the longevity of this device or its parts and that it or its parts could fail prematurely. The patient was also notified that during the course of surgery, there may be a need to use bone graft from donors, and that any bone graft used will be carefully screened for communicable diseases, including AIDS, hepatitis, Ted-Creutzfeldt, or other diseases, but despite the screening procedures, there is a small chance that they could contract one of these diseases. Finally, the patient was asked to follow completely and fully with all advice and recommended treatments, and that recovery and ultimate outcome are affected by their compliance with recommended treatment. We discussed the risks, benefits and treatment alternatives, and the patient is interested in proceeding with surgery. We will try to set this up as expeditiously as possible. Office Procedures GNS Level of Care Nursing/Assessment Patient Status: Established Patient Nursing Assessment/Reassesment: Medication Reconciliation, Update PMH in EMR and Vital Signs Coordination of Care: Complex Care and Chronic Disease 1-5, Education Complex Pt/Fam, Consent,records obtained, informed consent, Results/Orders obtained and Staff clarify orders Established Patient Charge Established Patient Point Assignment: 95 Established Patient Point Charge: EP Level 3 (80-115) MA Intake Visit Data Collection New Patient or Established: Established Patient (seen at [facility] within 3 years) Reason for Visit:: 4 WEEK SHAN L Seen by Clinical Staff ONLY (RN/MA): No Verbal consent obtained for Telemed visit?: No Provisioning Analyst Required: No PCP or OBGYN visit in last 3 months: Yes Hx Now: No Do You Feel Safe at Home: Yes Authorities Contacted: N/A Questionairres Past Medical History Past Medical History Have you ever been diagnosed with any of the following: Neurological Problems Seizures: No Cardiology Problems Congestive Heart Failure: No Respiratory Problems Chronic Obstructive Pulmonary Disease (COPD): No Smoking: No Smoking Cessation Counseling: No Smoking Exposure: No Tobacco Use: No Genital/Urinary Problems Renal Disease: No Reproductive Problems Previous Pregnancies: No Musculoskeletal Problems Osteoporosis: Yes (Ostopenia) Fractures: Yes (Left wrist) Endocrine Problems Diabetes Mellitus Type 1: No Diabetes Mellitus Type 2: No Other Problems Hospitalization: Yes ([facility]) Shingles: Yes Blood Transfusions: No Blood Transfusion Reaction: No Anesthesia Reactions: No Chicken Pox: Yes Cancer: No Surgical History Total Hip Replacement: Yes (LEFT 08/2024) Subjective Visit Visit for: follow up visit, post op #1 and hip Immunization / Flu Flu Vaccine in the Last 12 Months: No Flu Vaccine Exclusion Criteria: Already Received History of Present Illness Chief complaint: POST OP 4 WEEK LEFT SHAN Gloria is a pleasant 64-year-old female with left greater than right hip pain. She is doing well status post total hip replacement which was done 6 weeks ago. She is very happy with her left hip replacement. SHe has tried NSAIDs and formal physical therapy but is very limited by her right hip pain. She has some difficulty putting on socks and shoes Personal History Occupation: RETIRED Red flag PMH: none Pain Pain level (0-10): 0 Pain duration: ON AND OFF Pain location: outside (lateral) Pain quality: dull Pain timing: increases with activity Associated signs & symptoms: none Ambulatory data Ambulatory device: none Walking distance (minutes): 5 Treatments Number of previous injections: 0 Improvement with previous injections: No Number of Physical Therapy sessions: 20 Improvement with PT: No Improvement with NSAIDS: no Review of Systems Review of Systems: All systems negative unless otherwise noted in HPI.
== END 2024-10-23 11:18 | disposition home or self-care (01) ==
LOC: HODSRG 11:03
PROVIDERS: PCP Family Medicine; Referring Provider Family Medicine; Supervising Provider Orthopaedic Surgery Adult Reconstructive Orthopaedic Surgery; Visit Provider Orthopaedic Surgery Adult Reconstructive Orthopaedic Surgery
DX: M16.12 Unilateral primary osteoarthritis, left hip (principal); M25.551 Pain in right hip; Z96.642 Presence of left artificial hip joint
CPT/HCPCS: 99213; G0463

== ENCOUNTER → 2024-12-01 | Outpatient (CLI) | payer MEDICAID, SELFPAY ==
--- NOTE | 2024-12-01 14:27 | XR_ITS ---
Examination: Right hip AP, lateral, AP pelvis 3 views Technique: Hip AP lateral, AP pelvis, 3 views Exam date and time: December 01, 2024, 1446 hours INDICATIONS: Right hip pain beginning 1 year ago. FINDINGS: Prominent osteopenia Advanced right hip osteoarthritis Left hip total arthroplasty with satisfactory alignment Bones of the pelvis intact IMPRESSION: Advanced right hip osteoarthritis.
== END | disposition home or self-care (01) ==
PROVIDERS: Referring Provider Orthopaedic Surgery Adult Reconstructive Orthopaedic Surgery; Visit Provider Orthopaedic Surgery Adult Reconstructive Orthopaedic Surgery
DX: M16.11 Unilateral primary osteoarthritis, right hip (principal)
CPT/HCPCS: 73502

== ENCOUNTER 2024-12-11 10:23 | Outpatient (AMB) | payer MEDICAID, SELFPAY ==
--- NOTE | 2024-12-11 10:46 | PD.ORTHCLVIS ---
Vital signs 12/11/24 10:47 Height 1.7 m Height Method Stated Weight 68.748 kg Weight Measurement Method Standing Scale BMI 23.8 BP 128/83 Blood Pressure Source Automatic Cuff Blood Pressure Location Left Upper Arm Position Sitting Respiration 19 Pulse 76 Pulse Source Monitor Temp 96.9 F Temp Source Temporal Artery Scan Pulse Oximetry (%) 98 Oxygen Delivery Method Room Air Med/Allergies Allergies & Medications Allergies Penicillins Allergy (Verified 12/11/24 10:48) Hives Medication Reconciliation ibandronate 150 mg tablet 150 mg PO QMONTH 07/03/24 [History Confirmed 12/11/24] meloxicam 7.5 mg tablet 7.5 mg PO QDAY #45 tabs 08/12/24 [Rx Confirmed 12/11/24] acetaminophen 500 mg tablet (Acetaminophen Extra Strength) 1,000 mg (2 x 500 mg) PO Q6H PRN pain #90 tabs 09/10/24 [Rx Confirmed 12/11/24] aspirin 81 mg tablet,delayed release 81 mg PO BID #60 tabs 09/10/24 [Rx Confirmed 12/11/24] doxycycline hyclate 100 mg tablet 100 mg PO BID #14 tabs 09/10/24 [Rx Confirmed 12/11/24] gabapentin 300 mg capsule 300 mg PO .qhs #30 caps 09/10/24 [Rx Confirmed 12/11/24] oxycodone 5 mg tablet 5 mg PO Q6H PRN pain #28 tabs 09/10/24 [Rx Confirmed 12/11/24] sennosides 8.6 mg-docusate sodium 50 mg tablet (Senna-S) 1 tab-cap PO QDAY #30 tabs 09/10/24 [Rx Confirmed 12/11/24] Exam Exam Patient is in no acute distress and is cooperative with the examination today. Breathing is nonlabored. In no respiratory distress. Patient has no paraspinal tenderness. Spinal deformity cannot be appreciated. The gait of the patient is nonantalgic Bilateral extremities were evaluated and demonstrates sensation intact to light touch. Palpable pedal pulses are present. No significant edema is present. Bilateral knees were examined and the patient has full strength and range of motion.. The right hip was examined. Patient was able to flex to 90 degrees, adduct to 30 degrees, abduct to 40 degrees, internally rotate to 10 degrees, and externally rotate to 20 degrees. Patient has a positive logroll. [facility] 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 Joint space narrowing is demonstrates complete obliteration Assessment and Plan Problem List (1) Arthritis of left hip: Status: Acute Plan: Patient is a pleasant 64-year-old female with left hip pain and left hip arthritis of significant severity. She is status post left total hip replacement and is doing well. She has tried NSAIDS and PT. The right hip pain is affecting her quality life and happiness. We will plan to do this through an anterior approach. We will need a CT as well The nature and purpose of the total hip replacement, alternative method(s) of treatment, the material risks involved, and the possibility of complications were fully explained to the patient. The patient does NOT have any of the following contraindications to SHAN: - Active infection of the hip joint, OR - Active systemic bacteremia, OR - Active skin infection or open wound at surgical site, OR - Neuropathic arthritis, OR - Severe, rapidly progressive neurological disease, OR - Severe medical condition that makes risks of the surgery outweigh the potential benefit The patient was told the most common risks and complications associated with a total hip replacement include, but are not limited to: blood clots in the leg, fatal pulmonary embolism, dislocation of the prosthesis, intraoperative and postoperative fractures of the femur or acetabulum, infection, failure of the prosthesis or grafting materials, complications from anesthesia, reactions to blood transfusions, postoperative leg length inequality, instability of the hip replacement, nerve damage or injury, vascular injury, delayed wound healing, infection, other injury or even . In addition, there are risks associated with anesthesia given during this operation. Also, the patient was told that after undergoing a total hip replacement there may still be persistent pain or disability. The patient was informed that the success of this operation in part depends upon the mechanical devices which are going to be implanted and that these devices can fail or malfunction, and may need to be repaired or replaced and there are no guarantees as to the longevity of this device or its parts and that it or its parts could fail prematurely. The patient was also notified that during the course of surgery, there may be a need to use bone graft from donors, and that any bone graft used will be carefully screened for communicable diseases, including AIDS, hepatitis, Ted-Creutzfeldt, or other diseases, but despite the screening procedures, there is a small chance that they could contract one of these diseases. Finally, the patient was asked to follow completely and fully with all advice and recommended treatments, and that recovery and ultimate outcome are affected by their compliance with recommended treatment. We discussed the risks, benefits and treatment alternatives, and the patient is interested in proceeding with surgery. We will try to set this up as expeditiously as possible. Office Procedures GNS Level of Care Nursing/Assessment Patient Status: Established Patient Nursing Assessment/Reassesment: Medication Reconciliation, Update PMH in EMR and Vital Signs Coordination of Care: Complex Care and Chronic Disease 1-5, Education Complex Pt/Fam, Consent,records obtained, informed consent, Results/Orders obtained and Staff clarify orders Special Needs: Language special needs Established Patient Charge Established Patient Point Assignment: 95 Established Patient Point Charge: EP Level 3 (80-115) MA Intake Visit Data Collection New Patient or Established: Established Patient (seen at [facility] within 3 years) Reason for Visit:: PRE OP R SHAN Seen by Clinical Staff ONLY (RN/MA): No Verbal consent obtained for Telemed visit?: No Steam Box Operator Required: No PCP or OBGYN visit in last 3 months: Yes Hx Now: No Do You Feel Safe at Home: Yes Authorities Contacted: N/A Questionairres Past Medical History Past Medical History Have you ever been diagnosed with any of the following: Neurological Problems Seizures: No Cardiology Problems Congestive Heart Failure: No Respiratory Problems Chronic Obstructive Pulmonary Disease (COPD): No Smoking: No Smoking Cessation Counseling: No Smoking Exposure: No Tobacco Use: No Genital/Urinary Problems Renal Disease: No Reproductive Problems Previous Pregnancies: No Musculoskeletal Problems Osteoporosis: Yes (Ostopenia) Fractures: Yes (Left wrist) Endocrine Problems Diabetes Mellitus Type 1: No Diabetes Mellitus Type 2: No Other Problems Hospitalization: Yes ([facility]) Shingles: Yes Blood Transfusions: No Blood Transfusion Reaction: No Anesthesia Reactions: No Chicken Pox: Yes Cancer: No Surgical History Total Hip Replacement: Yes (LEFT 08/2024) Subjective Visit Visit for: follow up visit, post op #1 and hip Immunization / Flu Flu Vaccine in the Last 12 Months: No Flu Vaccine Exclusion Criteria: Already Received History of Present Illness Chief complaint: PRE OP R SHAN Gloria is a pleasant 64-year-old female with left greater than right hip pain. She is doing well status post total hip replacement which was done 6 weeks ago. She is very happy with her left hip replacement. SHe has tried NSAIDs and formal physical therapy but is very limited by her right hip pain. She has some difficulty putting on socks and shoes. She has tried meloxicam and activity modification for her right side as well as pt. Personal History Occupation: RETIRED Red flag PMH: none Pain Pain level (0-10): 0 Pain duration: ON AND OFF Pain location: outside (lateral) Pain quality: dull Pain timing: increases with activity Associated signs & symptoms: none Ambulatory data Ambulatory device: none Walking distance (minutes): 5 Treatments Number of previous injections: 0 Improvement with previous injections: No Number of Physical Therapy sessions: 20 Improvement with PT: No Improvement with NSAIDS: no Review of Systems Review of Systems: All systems negative unless otherwise noted in HPI.
[2024-12-11 10:47] VITALS: BP 128/83; PULSE 76; RESP 19; TEMP 36.1; O2SAT 98; BMI 23.8
== END 2024-12-11 10:54 | disposition home or self-care (01) ==
PROVIDERS: Supervising Provider Orthopaedic Surgery Adult Reconstructive Orthopaedic Surgery; Visit Provider Orthopaedic Surgery Adult Reconstructive Orthopaedic Surgery
DX: Z47.1 Aftercare following joint replacement surgery (principal); Z96.642 Presence of left artificial hip joint; M25.561 Pain in right knee; M25.562 Pain in left knee; M16.11 Unilateral primary osteoarthritis, right hip
CPT/HCPCS: 99213; G0463

== ENCOUNTER 2024-12-25 10:59 | Outpatient (AMB) | payer MEDICAID, SELFPAY ==
--- NOTE | 2024-12-25 11:06 | ORTHONT_ITS ---
Vital signs 12/25/24 11:09 Height 1.7 m Height Method Stated Weight 68.492 kg Weight Measurement Method Standing Scale BMI 23.7 BP 113/79 Blood Pressure Source Automatic Cuff Blood Pressure Location Left Upper Arm Position Sitting Respiration 19 Pulse 83 Pulse Source Monitor Temp 97.6 F Temp Source Temporal Artery Scan Pulse Oximetry (%) 97 Oxygen Delivery Method Room Air Med/Allergies Allergies & Medications Allergies Penicillins Allergy (Verified 12/25/24 11:08) Hives Medication Reconciliation ibandronate 150 mg tablet 150 mg PO QMONTH 07/03/24 [History Confirmed 12/25/24] meloxicam 7.5 mg tablet 7.5 mg PO QDAY #45 tabs 08/12/24 [Rx Confirmed 12/25/24] acetaminophen 500 mg tablet (Acetaminophen Extra Strength) 1,000 mg (2 x 500 mg) PO Q6H PRN pain #90 tabs 09/10/24 [Rx Confirmed 12/25/24] aspirin 81 mg tablet,delayed release 81 mg PO BID #60 tabs 09/10/24 [Rx Confirmed 12/25/24] doxycycline hyclate 100 mg tablet 100 mg PO BID #14 tabs 09/10/24 [Rx Confirmed 12/25/24] gabapentin 300 mg capsule 300 mg PO .qhs #30 caps 09/10/24 [Rx Confirmed 12/25/24] oxycodone 5 mg tablet 5 mg PO Q6H PRN pain #28 tabs 09/10/24 [Rx Confirmed 12/25/24] sennosides 8.6 mg-docusate sodium 50 mg tablet (Senna-S) 1 tab-cap PO QDAY #30 tabs 09/10/24 [Rx Confirmed 12/25/24] Exam Exam Patient is in no acute distress and is cooperative with the examination today. Breathing is nonlabored. In no respiratory distress. Patient has no paraspinal tenderness. Spinal deformity cannot be appreciated. The gait of the patient is nonantalgic Bilateral extremities were evaluated and demonstrates sensation intact to light touch. Palpable pedal pulses are present. No significant edema is present. Bilateral knees were examined and the patient has full strength and range of motion.. The right hip was examined. Patient was able to flex to 90 degrees, adduct to 30 degrees, abduct to 40 degrees, internally rotate to 10 degrees, and externally rotate to 20 degrees. Patient has a positive logroll. [facility] 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 Joint space narrowing is demonstrates complete obliteration Assessment and Plan Problem List (1) Arthritis of left hip: Status: Acute Plan: Patient is a pleasant 64-year-old female with left hip pain and left hip arthritis of significant severity. She is status post left total hip replacement and is doing well. She has tried NSAIDS and PT. The right hip pain is affecting her quality life and happiness. We will plan to do this through an anterior approach. The nature and purpose of the total hip replacement, alternative method(s) of treatment, the material risks involved, and the possibility of complications were fully explained to the patient. The patient does NOT have any of the following contraindications to SHAN: - Active infection of the hip joint, OR - Active systemic bacteremia, OR - Active skin infection or open wound at surgical site, OR - Neuropathic arthritis, OR - Severe, rapidly progressive neurological disease, OR - Severe medical condition that makes risks of the surgery outweigh the potential benefit The patient was told the most common risks and complications associated with a total hip replacement include, but are not limited to: blood clots in the leg, fatal pulmonary embolism, dislocation of the prosthesis, intraoperative and postoperative fractures of the femur or acetabulum, infection, failure of the prosthesis or grafting materials, complications from anesthesia, reactions to blood transfusions, postoperative leg length inequality, instability of the hip replacement, nerve damage or injury, vascular injury, delayed wound healing, infection, other injury or even . In addition, there are risks associated with anesthesia given during this operation. Also, the patient was told that after undergoing a total hip replacement there may still be persistent pain or disability. The patient was informed that the success of this operation in part depends upon the mechanical devices which are going to be implanted and that these devices can fail or malfunction, and may need to be repaired or replaced and there are no guarantees as to the longevity of this device or its parts and that it or its parts could fail prematurely. The patient was also notified that during the course of surgery, there may be a need to use bone graft from donors, and that any bone graft used will be carefully screened for communicable diseases, including AIDS, hepatitis, Ted-Creutzfeldt, or other diseases, but despite the screening procedures, there is a small chance that they could contract one of these diseases. Finally, the patient was asked to follow completely and fully with all advice and recommended treatments, and that recovery and ultimate outcome are affected by their compliance with recommended treatment. We discussed the risks, benefits and treatment alternatives, and the patient is interested in proceeding with surgery. We will try to set this up as expeditiously as possible. Office Procedures GNS Level of Care Nursing/Assessment Patient Status: Established Patient Nursing Assessment/Reassesment: Medication Reconciliation, Update PMH in EMR and Vital Signs Coordination of Care: Complex Care and Chronic Disease 1-5, Education Complex Pt/Fam, Consent,records obtained, informed consent, Results/Orders obtained and Staff clarify orders Established Patient Charge Established Patient Point Assignment: 95 Established Patient Point Charge: EP Level 3 (80-115) MA Intake Visit Data Collection New Patient or Established: Established Patient (seen at [facility] within 3 years) Reason for Visit:: PRE OP R SHAN Seen by Clinical Staff ONLY (RN/MA): No Verbal consent obtained for Telemed visit?: No Data Management Consultant Required: No PCP or OBGYN visit in last 3 months: Yes Hx Now: No Do You Feel Safe at Home: Yes Authorities Contacted: N/A Questionairres Past Medical History Past Medical History Have you ever been diagnosed with any of the following: Neurological Problems Seizures: No Cardiology Problems Congestive Heart Failure: No Respiratory Problems Chronic Obstructive Pulmonary Disease (COPD): No Smoking: No Smoking Cessation Counseling: No Smoking Exposure: No Tobacco Use: No Genital/Urinary Problems Renal Disease: No Reproductive Problems Previous Pregnancies: No Musculoskeletal Problems Osteoporosis: Yes (Ostopenia) Fractures: Yes (Left wrist) Endocrine Problems Diabetes Mellitus Type 1: No Diabetes Mellitus Type 2: No Other Problems Hospitalization: Yes ([facility]) Shingles: Yes Blood Transfusions: No Blood Transfusion Reaction: No Anesthesia Reactions: No Chicken Pox: Yes Cancer: No Surgical History Total Hip Replacement: Yes (LEFT 08/2024) Subjective Visit Visit for: follow up visit and hip (RIGHT) Immunization / Flu Flu Vaccine in the Last 12 Months: No Flu Vaccine Exclusion Criteria: Already Received History of Present Illness Chief complaint: PRE OP R SHAN Gloria is a pleasant 64-year-old female with left greater than right hip pain. She is doing well status post total hip replacement which was done 6 weeks ago. She is very happy with her left hip replacement. SHe has tried NSAIDs and formal physical therapy but is very limited by her right hip pain. She has some difficulty putting on socks and shoes. She has tried meloxicam and activity modification for her right side as well as pt. Personal History Occupation: RETIRED Red flag PMH: none Additional comments: PATIENT HAS HER OWN 2 WHEEL WALKER AWARE TO TAKE IN DAY OF SX Pain Pain level (0-10): 0 Pain duration: ON AND OFF Pain location: outside (lateral) Pain quality: dull Pain timing: increases with activity Associated signs & symptoms: none Ambulatory data Ambulatory device: none Walking distance (minutes): 5 Treatments Number of previous injections: 0 Improvement with previous injections: No Number of Physical Therapy sessions: 20 Improvement with PT: No Improvement with NSAIDS: no Review of Systems Review of Systems: All systems negative unless otherwise noted in HPI.
[2024-12-25 11:09] VITALS: BP 113/79; PULSE 83; RESP 19; TEMP 36.4; O2SAT 97; BMI 23.7
== END 2024-12-25 11:10 | disposition home or self-care (01) ==
LOC: HODSRG 10:59
PROVIDERS: PCP Family Medicine; Referring Provider Family Medicine; Supervising Provider Orthopaedic Surgery Adult Reconstructive Orthopaedic Surgery; Visit Provider Orthopaedic Surgery Adult Reconstructive Orthopaedic Surgery
DX: Z96.642 Presence of left artificial hip joint (principal); M16.11 Unilateral primary osteoarthritis, right hip
CPT/HCPCS: 99213; G0463

== ENCOUNTER → 2024-12-25 | Outpatient (CLI) | payer MEDICAID, SELFPAY ==
--- NOTE | 2024-12-25 12:37 | XR_ITS ---
Examination: CT bilateral lower extremities without intravenous contrast, 2-D sagittal reconstructions. 2-D coronal reconstructions. 3-D reconstructions. Date and time of exam: December 25, 2024, 1324 hours INDICATIONS: Right hip pain 3 years, diagnosis primary unilateral osteoarthritis right hip CTDI: vol (mGy): 19.6 DLP: (mGycm): 839 Technique: Multiple 1.25 mm axial sections of the bilateral lower extremities without intravenous contrast have been obtained. 2-D sagittal and coronal reconstructions have been obtained. 3-D reconstructions have been obtained. Low dose protocols were performed. One or more of the following dose reduction techniques were used; automated exposure control, adjustment of the mA and/or KV according to patient size, use of iterative reconstruction technique. Findings: Advanced narrowing right hip joint No right hip fracture No avascular necrosis Total left hip arthroplasty with satisfactory alignment Mild to moderate bilateral narrowing medial joint spaces of the knee Mild to moderate bilateral narrowing lateral patellofemoral joints No new fractures IMPRESSION: Advanced right hip osteoarthritis
== END | disposition home or self-care (01) ==
LOC: CDIM 12:29
PROVIDERS: PCP Family Medicine; Referring Provider Orthopaedic Surgery Adult Reconstructive Orthopaedic Surgery; Visit Provider Orthopaedic Surgery Adult Reconstructive Orthopaedic Surgery
DX: M16.11 Unilateral primary osteoarthritis, right hip (principal)
CPT/HCPCS: 72192; 73700

== ENCOUNTER 2025-01-28 08:40 | Day surgery (SDC) | payer MEDICAID, SELFPAY ==
[2025-01-27 11:19] VITALS: BMI 22.9
[2025-01-27 12:15] LABS: Basophils # (Auto) 0.0 Thou/mm3 (0.0-0.2); Basophils % (Auto) 1 % (0-2.5); Eosinophils # (Auto) 0.0 Thou/mm3 (0.0-0.5); Eosinophils % (Auto) 0 % (0-10); Hematocrit 42.6 % (36.0-46.0); Hemoglobin 14.9 g/dL (12.0-16.0); Immature Granulocytes Auto 0.03 Thou/mm3 (0.00-0.00); Lymphocytes # (Auto) 1.2 Thou/mm3 (1.0-4.8); Lymphocytes % (Auto) 15 % (10-50); Mean Corpuscular HGB Conc 35.0 g/dl (31.0-37.0); Mean Corpuscular Hemoglobin 33.0 pg (25.0-35.0); Mean Corpuscular Volume 95 fL (80-100); Monocytes # (Auto) 0.8 Thou/mm3 (0.0-0.8); Monocytes % (Auto) 10 % (0-12); Neutrophils # (Auto) 5.7 Thou/mm3 (1.8-7.7); Neutrophils % (Auto) 74 % (37-80); Nucleated Red Blood Cell # 0.00 Thou/mm3 (0.00-0.00); Nucleated Red Blood Cell % 0 /100 WBC (0); Platelet Count 231 Thou/mm3 (140-440); RDW Standard Deviation 45.4 fL (36.4-46.3); Red Blood Count 4.51 Miln/mm3 (4.00-5.20); White Blood Count 7.7 Thou/mm3 (3.6-11.0)
[2025-01-27 12:30] LABS: Alanine Aminotransferase 53 U/L (10-49); Albumin, Serum 5.2 gm/dL (3.4-4.8); Albumin/Globulin Ratio 2.2 (1.2-2.2); Alkaline Phosphatase 72 U/L (46-116); Anion Gap 10 (7-16); Aspartate Amino Transferase 49 U/L (0-34); BUN/Creatinine Ratio 11 Ratio (12-20); Bilirubin,Total 0.4 mg/dL (0.3-1.2); Blood Urea Nitrogen 9 mg/dL (9-23); Calcium 10.1 mg/dL (8.3-10.6); Calcium (Corrected) 10.1 mg/dL (8.5-10.1); Carbon Dioxide 28.4 mMol/L (20.0-31.0); Chloride 99 mMol/L (98-107); Creatinine (Component) 0.8 mg/dL (0.6-1.3); Estimated Creatinine Clearance 72.6 mL/min (>60); Globulin 2.4 gm/dL (2.3-3.5); Glucose 93 mg/dL (74-106); Osmolality,Calculated 272 (275-295); Potassium 4.7 mMol/L (3.4-5.1); Sodium 137 mMol/L (136-145); Total Protein 7.6 gm/dL (5.7-8.2); eGFR > 60 See Note
[2025-01-27 13:25] LABS: INR 0.9 (0.9-1.3); Partial Thromboplastin Time 26.8 Seconds (22.0-36.0); Prothrombin Time 9.8 Seconds (9.0-12.2)
[2025-01-28] VITALS (11 sets, daily range): BP systolic 92–135; BP diastolic 51–93; PULSE 62–100; RESP 12–20; TEMP 36.2–36.4; O2SAT 96–100
--- NOTE | 2025-01-28 07:09 | XR_ITS ---
EXAMINATION: Right hip 5 views Fluoroscopy Date and time: 71, 2024, 1354 hours INDICATIONS: Right hip arthroplasty today. TECHNIQUE AND FINDINGS: 5. Spot fluoroscopic films of the hip Fluoroscopy 19.5 seconds radiation dose 2.02 mGy Total right hip arthroplasty. Satisfactory alignment IMPRESSION: Total right hip arthroplasty with satisfactory alignment
[2025-01-28] MEDS: ACETAMINOPHEN 325 MG TABLET 650 MG PO (09:33)
[2025-01-28] MEDS: MELOXICAM 7.5 MG TABLET PO (09:34)
[2025-01-28] MEDS: PREGABALIN 75 MG CAPSULE PO (09:34)
[2025-01-28] MEDS: RINGERS LACTATED 1000 ML 1,000 ML 20 ML IV (09:35)
--- NOTE | 2025-01-28 10:31 | PD.ORTHCONPN ---
Subjective Subjective Brief History: right hip osteoarthritis and pain Narrative: Gloria is a pleasant 64-year-old female with right hip pain. She is doing well status post total hip replacement which was done 6 weeks ago. She is very happy with her left hip replacement. SHe has tried NSAIDs and formal physical therapy but is very limited by her right hip pain. She has some difficulty putting on socks and shoes. She has tried meloxicam and activity modification for her right side as well as pt. ROS: negative Exam Vital Signs Temp Pulse Resp BP Pulse Ox 97.5 F 84 17 135/84 H 99 01/28/25 09:10 01/28/25 09:10 01/28/25 09:10 01/28/25 09:10 01/28/25 09:10 Additional findings Additional findings: Patient is in no acute distress and is cooperative with the examination today. Breathing is nonlabored. In no respiratory distress. Patient has no paraspinal tenderness. Spinal deformity cannot be appreciated. The gait of the patient is nonantalgic Bilateral extremities were evaluated and demonstrates sensation intact to light touch. Palpable pedal pulses are present. No significant edema is present. Bilateral knees were examined and the patient has full strength and range of motion.. The right hip was examined. Patient was able to flex to 90 degrees, adduct to 30 degrees, abduct to 40 degrees, internally rotate to 10 degrees, and externally rotate to 20 degrees. Patient has a positive logroll. [facility] is positiive. 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 Joint space narrowing is demonstrates complete obliteration Objective - Ortho Labs 01/27/25 11:34 01/27/25 11:34 Labs: Laboratory Results - last 24 hr 01/27/25 11:34 WBC 7.7 RBC 4.51 Hgb 14.9 Hct 42.6 MCV 95 MCH 33.0 MCHC 35.0 RDW Std Deviation 45.4 Plt Count 231 Neut % (Auto) 74 Lymph % (Auto) 15 [place] % (Auto) 10 Eos % (Auto) 0 Baso % (Auto) 1 Neut # (Auto) 5.7 Lymph # (Auto) 1.2 [place] # (Auto) 0.8 Eos # (Auto) 0.0 Baso # (Auto) 0.0 Immature Gran # (Auto) 0.03 H Absolute Nucleated RBC 0.00 Immature Gran % 0 Nucleated RBC % 0 PT 9.8 INR 0.9 APTT 26.8 Sodium 137 Potassium 4.7 Chloride 99 Carbon Dioxide 28.4 Anion Gap 10 BUN 9 Creatinine 0.8 Estim Creat Clear Calc 72.6 eGFR > 60 BUN/Creatinine Ratio 11 L Glucose 93 Calculated Osmolality 272 L Calcium 10.1 Corrected Calcium 10.1 Total Bilirubin 0.4 AST 49 H ALT 53 H Alkaline Phosphatase 72 Total Protein 7.6 Albumin 5.2 H Globulin 2.4 Albumin/Globulin Ratio 2.2 Assessment & Plan Assessment Additional comments: Patient is a pleasant 64-year-old female with right hip pain and right hip arthritis of significant severity. She is status post left total hip replacement and is doing well. She has tried NSAIDS and PT. The right hip pain is affecting her quality life and happiness. We will plan to do this through an anterior approach. The nature and purpose of the total hip replacement, alternative method(s) of treatment, the material risks involved, and the possibility of complications were fully explained to the patient. The patient does NOT have any of the following contraindications to SHAN: - Active infection of the hip joint, OR - Active systemic bacteremia, OR - Active skin infection or open wound at surgical site, OR - Neuropathic arthritis, OR - Severe, rapidly progressive neurological disease, OR - Severe medical condition that makes risks of the surgery outweigh the potential benefit The patient was told the most common risks and complications associated with a total hip replacement include, but are not limited to: blood clots in the leg, fatal pulmonary embolism, dislocation of the prosthesis, intraoperative and postoperative fractures of the femur or acetabulum, infection, failure of the prosthesis or grafting materials, complications from anesthesia, reactions to blood transfusions, postoperative leg length inequality, instability of the hip replacement, nerve damage or injury, vascular injury, delayed wound healing, infection, other injury or even . In addition, there are risks associated with anesthesia given during this operation. Also, the patient was told that after undergoing a total hip replacement there may still be persistent pain or disability. The patient was informed that the success of this operation in part depends upon the mechanical devices which are going to be implanted and that these devices can fail or malfunction, and may need to be repaired or replaced and there are no guarantees as to the longevity of this device or its parts and that it or its parts could fail prematurely. The patient was also notified that during the course of surgery, there may be a need to use bone graft from donors, and that any bone graft used will be carefully screened for communicable diseases, including AIDS, hepatitis, Ted-Creutzfeldt, or other diseases, but despite the screening procedures, there is a small chance that they could contract one of these diseases. Finally, the patient was asked to follow completely and fully with all advice and recommended treatments, and that recovery and ultimate outcome are affected by their compliance with recommended treatment. We discussed the risks, benefits and treatment alternatives, and the patient is interested in proceeding with surgery. We will try to set this up as expeditiously as possible. Documentation for date of: 01/28/25
--- NOTE | 2025-01-28 14:40 | ESOP_ITS ---
Date of Procedure 01/28/25 Pre Op Diagnosis right hip osteoarthritis Post Op Diagnosis right hip osteoarthritis Procedure right total hip arthroplasty Findings full thickness cartilage loss and osteophytes Procedure Description Indications: The patient is a 64 y.o. year-old male with a long standing history of right hip pain. After considering the patient's condition and the impact of their hip on the patient's quality of life and activities of daily living, total hip replacement was offered as a reasonable option. Prior to the surgery I discussed the nature of the total hip replacement surgery including alternatives to surgery and the purpose of, and indications for proceeding with surgery. I discussed that this is an elective operation and that the patient should carefully weigh their options before proceeding with surgery. I discussed that this surgery is a shared decision between the patient and the surgeon. Risks and benefits and alternatives of the procedure have been explained to the patient and their family. Anesthesia complications and risks include but are not limited to stroke, heart attack, and . The surgical risks include but are not limited to infection, instability/dislocation, bleeding, nerve and blood vessel injury, deep vein thrombosis, pulmonary embolus, stiffness, pain, scar, need for reoperation, leg length discrepancy, thigh numbness, weakness, and mechanical failure of the implant including loosening, metal complications, metal allergy, wear or breakage. I discussed the expected recovery from surgery and the importance of compliance with all our pre and post-operative recommendations in order to maximize the recovery. The patient understands the risks of loss of life, loss of limb and, loss of function and wishes to proceed. A signed and witnessed consent was obtained and placed in the chart. Procedure in Detail: The patient was identified in the preoperative area. A signed and witness consent was confirmed in the chart. The surgery team confirmed with the patient the operative plan and surgical site. The surgical site was confirmed by the patient and marked by the surgical team. The patient was given the opportunity to ask any further questions and all questions were answered. The patient was brought to the operating room where anesthesia was induced by the anesthesia team without incident. The patient was placed in the supine position on a HANA table with the feet well padded in the boots. All extremities were padded to ensure adequate protection. A timeout was performed prior to the procedure which verified the correct patient, positioning, operation to be performed, operative site, antibiotics, allergies, imaging, and any other concerns. All parties were in agreement. The operative site was cleaned and draped in the usual sterile fashion. A final timeout was performed with all parties in agreement. We first started by making a small incision superior to the ASIS ensuring to be on the table of the pelvis. We ensured that we were 2 fingerbreadths above the ASIS and hip. We placed 3 pins through a small incision and ensured that we w ere in the table. The pins were driven approximately 3 to 4 cm. The arrays were then placed on the contralateral side to face the camera. A anterior approach to the hip was utilized for the operative side. A 11cm skin incision was made just distal and lateral to the ASIS. This was taken down through skin and subcutaneous tissue using a 10 blade. Bleeding was controlled using electrocautery. The fascia was identified and split in line with the its fibers. The plane medial to the TFL was developed. Next the lateral femoral circumflex vessel was cauterized. The capsule over the femoral neck was exposed and a T shaped capsulotomy performed. The two leaflets were tagged. A femoral neck osteotomy was then performed and the head removed using the marker tool to aid in determining the appropriate neck length. The acetabular bone was then mapped.Acetabular retractors were placed and the cupped was reamed using the robot for alignment. We reamed line to line and good bleeding bone was obtained. We then placed a press fit triathlon cup getting proper version and inclination off of c-arm imaging. There was good press fit. The anterior rim of the cup well covered. One placed and confirmed below the rim of the inner cup followed by the liner which was confirmed fully seated circumferentially. Half of the joint injection was placed inferior and anterior to the acetabulum. Peripheral osteophytes were removed. Next the femur was exposed using the table and femoral elevator for assistance. For this case a capsular release was performed leaving the piriformis and rest of short external rotators intact. The canal was broached up until we obtained excellent axial and rotational stability and the hip was reduced. Fluoro was used to training program developer limb length, offset, and stem size as well as the calibrations from the robot. Stability was assessed by externally rotating the foot to 90 deg and then extending the hip 30 degrees. There was no subluxation of the femoral head in that position. The hip was dislocated. The stem position and depth was adjusted as needed per the fluoro shot. The neck was planed to the level of the broach using the calcar planar and then the stem removed. The canal was irrigated and the calcar inspected. There was no evidence of fracture and the bone bed was in good condition. The real stem was inserted and then impacted to the prior level of the broach with good solid fit. The calcar was again inspected and in good condition. The real head was impacted onto a clean taper and the hip reduced again. C-arm confirmed reduction and no evidence of complication. The wound was irrigated with dilute betadine followed by saline lavage. Hemostasis was obtained and noted through all layers. The remained of the joint cocktail was injected avoiding posterior by the nerve. We ensured that all the pins were removed from the pelvis including any checkpoints. The capsule was repaired with 0-vlock. The fascia closed with #2 Quill. The s ubcutaneous tissues closed with 2-0 vlock followed by 3-0 monocryl, dermabond, and prineo The drapes were then taken down and the patient moved to the [facility]. Leg lengths were confirmed to be appropriate and the patient's lower extremities were warm and well perfused with brisk capillary refill and palpable pulses. The patient was then awoken, transferred to the [facility] and taken to the PACU in stable condition. They tolerated the procedure well. The patient's family/caregiviers were made aware of their condition. Final sponge and needle counts were correct x2. Implants: Tolu trident 54 cup, 40+0 head, high offset 5 insignia Implants Implants comments: otlu Pathology / specimen None Pathology comment: none Estimated Blood Loss 150 Condition Stable Disposition same day Surgeon Jimbo Maynard MD Surgical Staff Operation Date: 01/28/25 12:45 Case Staff Anesthesiologist: Eligio Law RN First Assistant: Claudia Wilson
--- NOTE | 2025-01-28 14:50 | SUR.PHASEI ---
1450: Pt. AAOx4, vitals stable, breathing unlabored, no complaint of pain or nausea, dressing to bilateral hips CDI, no active bleed noted, bilateral dorsalis pedis pulses strong and regular, cap refill to bilateral feet less than 3 seconds, pt. able to move bilateral legs, report received from MD Law and Aminata SERNA.
--- NOTE | 2025-01-28 14:51 | XR_ITS ---
Examination: Right hip AP, lateral, AP pelvis 3 views Technique: Hip AP lateral, AP pelvis, 3 views Exam date and time: January 28, 2025, 1501 hours INDICATIONS: Postoperative care placement today. FINDINGS: Total right hip arthroplasty. Satisfactory alignment Left hip arthroplasty bones of the pelvis intact IMPRESSION: Total right hip arthroplasty with satisfactory alignment.
[2025-01-28] MEDS: fentaNYL CIT INJ 50 mCg/ML AMP 2ML 25 MCG IVP (15:21)
[2025-01-28] MEDS: oxyCODONE HCL 5 MG IR TAB PO (15:28)
--- NOTE | 2025-01-28 16:27 | SUR.PHASEII ---
1627: Pt. AAOx4, vitals stable, breathing unlabored, no complaint of pain or nausea, dressing to bilateral hips CDI, no active bleed noted, bilateral dorsalis pedis pulses strong and regular, cap refill to bilateral feet less than 3 seconds, pt. tolerated sips of juice and bites of jello well, gave report to Morenita López RN to resume care of pt.
--- NOTE | 2025-01-28 16:39 | SUR.PHASEII ---
1639 patient cleared by PT to proceed with discharge, voided in restroom during PT session
--- NOTE | 2025-01-28 16:55 | SUR.PHASEII ---
1656 patient meets discharge criteria from recovery, awake and alert, breathing unlabored, vital signs stable, denies pain and nausea, assisted with dressing into her clothing by her , discharge instructions given to patient and patients , signed discharge instructions. Patient given all her belongings prior to discharge, transported via wheelchair and left in a private vehicle.
== END 2025-01-28 16:55 | disposition home or self-care (01) ==
PROVIDERS: Anesthesiology; PCP Family Medicine; Referring Provider Orthopaedic Surgery Adult Reconstructive Orthopaedic Surgery; Visit Provider Orthopaedic Surgery Adult Reconstructive Orthopaedic Surgery
PROC: (CPT 27130; principal; 2025-01-28 12:45)
DX: M16.11 Unilateral primary osteoarthritis, right hip (principal); M25.751 Osteophyte, right hip
CPT/HCPCS: 27130; 36415; 73502; 76000; 80053; 85025; 85610; 85730; 97162; A4217; A4649; C1713; C1776; J0690; J2250; J2704; J3010; J3490; J7120; J7999; A4648; A9270

== ENCOUNTER 2025-02-10 13:01 | Outpatient (AMB) | payer MEDICAID, SELFPAY ==
--- NOTE | 2025-02-10 13:06 | ORTHONT_ITS ---
Vital signs 02/10/25 13:07 Height 1.73 m Height Method Stated Weight 68.209 kg Weight Measurement Method Standing Scale BMI 22.8 BP 120/81 Blood Pressure Source Automatic Cuff Blood Pressure Location Left Upper Arm Position Sitting Respiration 18 Pulse 120 H Pulse Source Monitor Temp 97.5 F Temp Source Temporal Artery Scan Pulse Oximetry (%) 98 Oxygen Delivery Method Room Air Med/Allergies Allergies & Medications Allergies Penicillins Allergy (Verified 02/10/25 13:07) Hives Medication Reconciliation ibandronate 150 mg tablet 150 mg PO QMONTH 07/03/24 [History Confirmed 02/10/25] meloxicam 7.5 mg tablet 7.5 mg PO QDAY #45 tabs 08/12/24 [Rx Confirmed 02/10/25] acetaminophen 500 mg tablet (Acetaminophen Extra Strength) 1,000 mg (2 x 500 mg) PO Q6H PRN pain #90 tabs 01/28/25 [Rx Confirmed 02/10/25] aspirin 81 mg tablet,delayed release 81 mg PO BID #60 tabs 01/28/25 [Rx Confirmed 02/10/25] doxycycline hyclate 100 mg tablet 100 mg PO BID #14 tabs 01/28/25 [Rx Confirmed 02/10/25] gabapentin 300 mg capsule 300 mg PO .qhs #30 caps 01/28/25 [Rx Confirmed 02/10/25] oxycodone 5 mg tablet 5 mg PO Q6H PRN pain #28 tabs 01/28/25 [Rx Confirmed 02/10/25] sennosides 8.6 mg-docusate sodium 50 mg tablet (Senna-S) 1 tab-cap PO QDAY #30 tabs 01/28/25 [Rx Confirmed 02/10/25] Exam Exam Patient is in no acute distress and is cooperative with the examination today. Breathing is nonlabored. In no respiratory distress. Patient has no paraspinal tenderness. Spinal deformity cannot be appreciated. The gait of the patient is nonantalgic Bilateral extremities were evaluated and demonstrates sensation intact to light touch. Palpable pedal pulses are present. No significant edema is present. Bilateral knees were examined and the patient has full strength and range of motion.. Right hip incision is clean dry and intact Assessment and Plan Problem List (1) Arthritis of left hip: Status: Acute Plan: She is status post right total hip replacement and is doing well. We will start her with outpatient physical therapy Office Procedures GNS Level of Care Nursing/Assessment Patient Status: Established Patient Nursing Assessment/Reassesment: Medication Reconciliation, Update PMH in EMR and Vital Signs Coordination of Care: Complex Care and Chronic Disease 1-5, Education Complex Pt/Fam, Consent,records obtained, informed consent, Results/Orders obtained and Staff clarify orders Established Patient Charge Established Patient Point Assignment: 95 Established Patient Point Charge: EP Level 3 (80-115) MA Intake Visit Data Collection New Patient or Established: Established Patient (seen at [facility] within 3 years) Reason for Visit:: 2WK POST R SHAN Seen by Clinical Staff ONLY (RN/MA): No Verbal consent obtained for Telemed visit?: No Operations Section Manager Required: No PCP or OBGYN visit in last 3 months: Yes Hx Now: No Do You Feel Safe at Home: Yes Authorities Contacted: N/A Questionairres Past Medical History Past Medical History Have you ever been diagnosed with any of the following: Neurological Problems Seizures: No Cardiology Problems Congestive Heart Failure: No Respiratory Problems Chronic Obstructive Pulmonary Disease (COPD): No Smoking: No Smoking Cessation Counseling: No Smoking Exposure: No Tobacco Use: No Genital/Urinary Problems Renal Disease: No Reproductive Problems Previous Pregnancies: No Musculoskeletal Problems Osteoporosis: Yes (Ostopenia) Fractures: Yes (Left wrist) Endocrine Problems Diabetes Mellitus Type 1: No Diabetes Mellitus Type 2: No Other Problems Hospitalization: Yes ([facility]) Shingles: Yes Blood Transfusions: No Blood Transfusion Reaction: No Anesthesia Reactions: No Chicken Pox: Yes Cancer: No Surgical History Total Hip Replacement: Yes (LEFT 08/2024) Subjective Visit Visit for: follow up visit and hip (RIGHT) Immunization / Flu Flu Vaccine in the Last 12 Months: No Flu Vaccine Exclusion Criteria: Already Received History of Present Illness Chief complaint: POST OP R SHAN Ramesh is doing really well status post right total hip replacement. She is using no assistive device and has no limp at this time Personal History Occupation: RETIRED Red flag PMH: none Additional comments: PATIENT HAS HER OWN 2 WHEEL WALKER AWARE TO TAKE IN DAY OF SX Pain Pain level (0-10): 0 Pain duration: ON AND OFF Pain location: outside (lateral) Pain quality: dull Pain timing: increases with activity Associated signs & symptoms: none Ambulatory data Ambulatory device: none Walking distance (minutes): 5 Treatments Number of previous injections: 0 Improvement with previous injections: No Number of Physical Therapy sessions: 20 Improvement with PT: No Improvement with NSAIDS: no Review of Systems Review of Systems: All systems negative unless otherwise noted in HPI.
[2025-02-10 13:07] VITALS: BP 120/81; PULSE 120; RESP 18; TEMP 36.4; O2SAT 98; BMI 22.8
== END 2025-02-10 13:12 | disposition home or self-care (01) ==
LOC: HODSRG 13:01
PROVIDERS: Supervising Provider Orthopaedic Surgery Adult Reconstructive Orthopaedic Surgery; Visit Provider Orthopaedic Surgery Adult Reconstructive Orthopaedic Surgery
DX: Z47.1 Aftercare following joint replacement surgery (principal); Z96.641 Presence of right artificial hip joint; M16.12 Unilateral primary osteoarthritis, left hip
CPT/HCPCS: 99213; G0463